=== PATIENT | male | born 1970 | race Caucasian/White ===

== ENCOUNTER 2016-09-27 10:50 | Inpatient (IN) | payer BC ==
[~2016-09-27] VITALS: Ht 185.4 cm; Wt 98.0 kg
[2016-10-09] MEDS ORDERED: SODIUM CHLORID 0.9% 500 ML IV PRN (09:45)
[2016-10-09] MEDS ORDERED: LACTATED RINGER'S 1000 ML IV PRN (09:45)
[2016-10-09] MEDS ORDERED: ceFAZolin 2 GM PREMIX 50 ML IV SCH (09:45)
[2016-10-09] MEDS ORDERED: VANCOMYCIN 1000 MG/NS 250 ML (for <70 kg) IV SCH ×2 (09:45)
[2016-10-09] MEDS ORDERED: POVIDONE IODINE 5% (ANTISEPSIS KIT) 4 APPLICATIONS EACH NARE PRN (09:45)
[2016-10-09] MEDS ORDERED: CHLORHEXIDINE GLUCONATE 2 % 1 PACK (2 CLOTHS) TOPICAL PRN (09:45)
[2016-10-09] MEDS ORDERED: INSULIN HUMAN REGULAR 1,000 UNITS/10 ML VIAL SQ PRN (09:45)
[2016-10-09] MEDS ORDERED: METOPROLOL TARTRATE 25 MG TAB PO PRN (09:45)
[2016-10-09 10:04] VITALS: BP 132/96; PULSE 97; RESP 20; TEMP 97.8; O2SAT 97
[2016-10-09] MEDS ORDERED: PROPOFOL 200 MG/20 ML AMP IV ONE (12:00)
[2016-10-09] MEDS ORDERED: PHENYLEPH/NS 1000 MCG/10 ML SYR IV ONE (12:00)
[2016-10-09] MEDS ORDERED: LACTATED RINGER'S 1000 ML INJ 1,000 ML IV ONE (12:00)
[2016-10-09] MEDS ORDERED: GENTAMICIN SULFATE 80 MG/2 ML VIAL ONE (12:51)
[2016-10-09] MEDS ORDERED: MORPHINE SULFATE 4 MG/ML INJ ONE (13:19)
[2016-10-09] MEDS ORDERED: ACETAMINOPHEN 1000 MG/100 ML VIAL IV ONE (14:44)
[2016-10-09] MEDS ORDERED: KETAMINE HCL 500 MG/5 ML VIAL ONE (14:44)
[2016-10-09] MEDS ORDERED: NALOXONE HCL 0.4 MG/ML AMP IV PRN (18:00)
[2016-10-09] MEDS ORDERED: ONDANSETRON HCL 4 MG/2 ML VIAL IV PRN (18:00)
[2016-10-09] MEDS ORDERED: SOD PHOSPHATE/SOD BIPHOSPHATE (ADULT) ENEMA 133ML PR PRN (18:00)
[2016-10-09] MEDS ORDERED: ALUMINUM/MAGNESIUM/SIMETH 30 ML CUP PO PRN (18:00)
[2016-10-09] MEDS ORDERED: BISACODYL 10 MG SUPP RECTAL PRN (18:00)
[2016-10-09] MEDS ORDERED: Post-op Orders (for Pharmacy) MISC XX ONE (18:00)
[2016-10-09] MEDS ORDERED: ACETAMINOPHEN/HYDROcodone 325 MG/7.5 MG TAB PO PRN (18:00)
[2016-10-09] MEDS ORDERED: MORPHINE SULFATE 8 MG/ML INJ IV PUSH PRN (18:00)
[2016-10-09] MEDS ORDERED: SODIUM CHLORIDE 0.9% FLUSH 5 ML FLUSH IVF PRN (18:00)
[2016-10-09] MEDS: LACTATED RINGER'S 1000 ML INJ 1,000 ML IV SCH ×2 (18:00→21:24)
--- NOTE | 2016-10-09 18:10 | PD.OP ---
cc: Calderon Warner MD Operative Report Date of Surgery: Oct 09, 2016 Preoperative Diagnosis: Lumbar spinal stenosis, L4 5. Lumbosacral radiculopathy. Degenerative disc disease lumbar spine. Discogenic low back pain Postoperative Diagnosis: Same. 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 Posterior spinal fusion, L4 5. Posterior spinal segmental instrumentation, L4 5. Posterior lateral interbody fusion. Placement of interbody cage. Major bone grafting of the lumbar spine Anesthesia: Gen. Surgeon: Calderon Warner Grain Buyer(s): ANTHONY Akers Operation and Findings: EBL: 200 ml NOTE: Karen Akers PA-C was present for the entire surgical procedure as my rehabilitation assistant. In my medical opinion her skill and care was necessary for proper management of this patient INDICATIONS: Patient is a 46-year-old male with significant back hip and leg pain. Vascular studies shows evidence of spinal stenosis at the L4 5 level and foraminal stenosis at level. Patient presents for surgical decompression. INSTRUMENTATION: Cage: Stax. Instrumentation, Solko PROCEDURE: The patient brought to the operating room and anesthetized the supine position. The patient positioned prone on the Murali frame on the Antonio table. All pressure points are protected. The back was scrubbed with alcohol followed by Hibiclens followed by ChloraPrep and draped sterilely and antibiotics were given within a routine time window. A timeout was done. Lateral radiographic images used to identify the proper level for the procedure. Compared care for the preoperative studies. Skin markings were made anticipating surgical treatment. A paramedian incision was made. The lamina and facet joint was exposed. We used the proper retractor was positioned over this region. The microscope was rolled into the field for visualization. A high-speed bur was used to take the lamina down and doing a subtotal facet resection. The exiting and crossing nerve roots were completely decompressed. A total discectomy was accomplished. The disc space was prepared. All cartilaginous material from the disc space was removed. A combination of demineralized bone matrix and Nucel stem cells were mixed together on the back table.. These were injected into the disc space. The cage was then placed according to prop setter's recommendation and deployed. Position was satisfactory. Additional bone graft was placed into the disc space. The outer edge of the facet joint was identified and prepared. Under fluoroscopic images, a bur was used to gain entrance into the pedicle followed by placement of a blunt probe, an awl and placement of proper length screws. Each screw was charged with electric current there are no abnormal potentials registered in either lower extremity. A proper length angeles was fitted and attached and tightened according to prop setter's recommendation. The wound was irrigated copiously. Bone grafting was placed along the lateral gutter in the region of the transverse process across this level. This was closed in layers with #1 Vicryl, 2-0 Vicryl and running intradermal 3-0 Vicryl followed by Steri-Strips and benzoin. On the contralateral side a separate exposure was made. The outer edge of the facet joints were identified. A bur was used to gain entrance into the pedicle followed by placement of a probe and proper length screws. Each screw was charged with electric current and no abnormal potentials registered in either lower extremity. The wound was irrigated copiously. Bone graft placed along the transverse process across this level. It was closed in layers using #1 Vicryl, 2-0 Vicryl and running intradermal 3-0 Vicryl followed by Steri-Strips and benzoin. Intraoperative radiographs were obtained. No complication was appreciated. The patient had a sterile dressing applied. The patient was awakened and taken to recovery room in satisfactory condition. FINDINGS: There was moderate to advanced spinal stenosis at that level. The instability was more than appreciated based on preoperative x-rays. The overall final alignment was satisfactory. Calderon Warner MD Oct 09, 2016 18:10
[2016-10-09] MEDS ORDERED: HYDR-3580 PO (18:11)
[2016-10-09] MEDS ORDERED: fentaNYL CITRATE 250 MCG/5 ML AMP ONE (18:47)
[2016-10-09] MEDS ORDERED: DO NOT ADM ANY ANTICOAGULANT DRUGS PRN (18:50)
[2016-10-09] MEDS: MORPHINE SULFATE 30 MG/30 ML PCA IV SCH (18:52)
--- NOTE | 2016-10-09 19:03 | RADRPT ---
EXAM DATE/TIME: 10/09/2016 17:51 [place] COMPARISON: No previous studies available for comparison. INDICATIONS : Lumbar fusion, L4-5. MEDICAL HISTORY : Unobtainable. SURGICAL HISTORY : Unobtainable. ENCOUNTER: Initial ACUITY: 1 day PAIN SCORE: Non-responsive. LOCATION: Neck. FINDINGS: Two view examination was performed. This postoperative transpedicular screw and angeles fixation across L 4-5. No acute fracture or spondylolisthesis. CONCLUSION: 1. Postoperative fusion at L4-5. Azael Hood MD on October 09, 2016 at 19:01 Board Certified Radiologist. This report was verified electronically.
[2016-10-09 20:05] VITALS: BP 122/70; PULSE 82; RESP 19; TEMP 96.2; O2SAT 96
[2016-10-09] MEDS: SODIUM CHLORIDE 0.9% FLUSH 5 ML FLUSH IVF SCH (21:00)
[2016-10-09] MEDS: ACETAMINOPHEN/HYDROcodone 325 MG/7.5 MG TAB PO PRN (21:23)
[2016-10-09] MEDS: ZOLPIDEM TARTRATE 5 MG TAB PO PRN (21:24)
[2016-10-09] MEDS: PCA - TOTAL MG MORPHINE DELIVERED PER SHIFT SCH (22:00)
[2016-10-09 22:05] VITALS: O2SAT 96
[2016-10-10] VITALS (7 sets, daily range): BP systolic 115–132; BP diastolic 69–86; PULSE 86–105; RESP 17–18; TEMP 96–97.5; O2SAT 93–98
[2016-10-10] MEDS ORDERED: CYCLOBENZAPRINE HCL 10 MG TAB PO ONE
[2016-10-10] MEDS ORDERED: MAGNESIUM HYDROXIDE SUSP 30 ML CUP PO PRN (01:15)
[2016-10-10] MEDS: ACETAMINOPHEN/HYDROcodone 325 MG/7.5 MG TAB PO PRN ×3 (04:36→19:34)
[2016-10-10] MEDS: MORPHINE SULFATE 30 MG/30 ML PCA IV SCH (04:39)
[2016-10-10] MEDS: PCA - TOTAL MG MORPHINE DELIVERED PER SHIFT SCH ×2 (06:00→14:00)
[2016-10-10 07:10] LABS: HEMATOCRIT 41.6 % (39.0-51.0); REVIEW FLAG FINAL
[2016-10-10] MEDS: SODIUM CHLORIDE 0.9% FLUSH 5 ML FLUSH IVF SCH ×2 (08:38→19:35)
--- NOTE | 2016-10-10 09:30 | HHI.FF ---
Face to Face Verification Diagnosis: (1) Lumbar spinal stenosis (2) Lumbar spine instability (3) Degeneration of intervertebral disc of lumbar region Physical Therapy Gait training, Safety evaluation S/P Spinal Fusion: Gait training with walker, Weight bearing as tolerated, No twisting of torso, No bending Additional Instructions PT 3 days/wk for 1 weeks. Out of bed with brace for 10-12 weeks. Gait training. Transfers. Nursing RN Days per Week: 5 x Week(s): 1 Dressing Changes: Daily dressing change, 4x4s, Coverderm/Primapore Additional Instructions Dry dressing changes daily w etoh. I have seen patient Devan Brito on 10/10/16. My clinical findings support the need for the requested home health care services because: Limited ability to care for self High risk of falls I certify that my clinical findings support that this patient is homebound because: Post-op weakness Unsteady gait/balance Ana Paula Adkins Oct 10, 2016 09:30
[2016-10-10] MEDS ORDERED: MISC-163 (09:31)
--- NOTE | 2016-10-10 09:35 | PD.ORT.PN ---
Subjective Subjective Remarks Moderate to significant low back pain. Spasms are frequent. No new radiating leg pain. No other concerns - no CP, abd pain or SOB. Questions about surgery. Questions about discharge. Objective Vitals Vital Signs Date Time Temp Pulse Resp B/P Pulse Ox O2 Delivery O2 Flow Rate FiO2 10/10/16 06:00 18 10/10/16 04:39 18 10/10/16 04:00 96.2 86 17 121/79 95 10/10/16 01:15 96.0 95 18 115/69 93 10/09/16 22:05 96 Nasal Cannula 2.00 10/09/16 22:00 17 10/09/16 21:07 96 Nasal Cannula 2.00 10/09/16 20:05 96.2 82 19 122/70 96 10/09/16 19:28 97.8 91 20 137/78 94 Nasal Cannula 3 10/09/16 19:15 91 20 137/78 94 Nasal Cannula 3 10/09/16 19:00 95 20 143/79 94 Nasal Cannula 3 10/09/16 18:52 16 10/09/16 18:45 100 20 147/81 93 Nasal Cannula 3 10/09/16 18:37 97.8 119 20 128/72 91 Nasal Cannula 3 10/09/16 10:04 97.8 97 20 132/96 97 I/O 10/09/16 10/09/16 10/09/16 10/10/16 10/10/16 10/10/16 07:00 15:00 23:00 07:00 15:00 23:00 Intake Total 1740 ml 587 ml 480 ml Output Total 500 ml 1000 ml Balance 1240 ml 587 ml -520 ml Intake Oral 480 ml IV Total 240 ml 587 ml Other 1500 ml Output Urine Total 400 ml 1000 ml Estimated Blood Loss 100 ml # Bowel Movements 0 Result Diagram: 10/10/16 06 Objective Remarks Laying in bed, no brace Mild distress, VSS L/S Dressing c/i, mild drainage, some spasm, no erythema +motor at/ehl distal, +sens, +nvi neg homans Assessment & Plan Ortho Post Op Day #: 1 Problem List: Assessment and Plan pod#1 s/p Lami Fusion L45, bone graft D/C [employer] later today after PT works with him. Change to po pain meds at that time. Dry dressing changes daily beginning pod#2. OOB w brace for 10-12 weeks. Walker as needed. D/C planning, [facility] or sat. DME and F2F written. Ana Paula Adkins Oct 10, 2016 09:35
[2016-10-10] MEDS: POVIDONE IODINE 7.5% SCRUB 118 ML BOTTLE TOPICAL SCH (09:45)
[2016-10-10] MEDS ORDERED: CYCLOBENZAPRINE HCL 10 MG TAB PO PRN (11:00)
--- NOTE | 2016-10-10 17:12 | PD.CONS ---
[facility] By Dr[facility] Huff Reason for Consult Medical management Primary Care Physician Cat Kaplan MD Diagnoses: History of Present Illness This is a 46-year-old male with no past medical history who presented with L4 to 5 lumbar spinal stenosis, lumbosacral radiculopathy, degenerative disc disease lumbar spine with failed conservative management and presented with lumbar laminectomy L4, L5, lateral recess decompression, subtotal facet resection, posterior spinal fusion, L4 5. posterior spinal segmental instrumentation, L4 5, posterior lateral interbody fusion, placement of interbody cage, and major bone grafting of the lumbar spine on 10/09/2016. Patient has no complaints. He is on the EEG TECHNICIAN pump. His nurse is at the bedside. He stated he is a relatively healthy person but has been suffering the lower back pain for many years. [facility] consulted for medical management, the patient does not have any medical conditions. Review of Systems Constitutional: DENIES: Diaphoretic episodes, Fatigue, Fever, Weight gain, Weight loss, Chills, Dizziness, Change in appetite, Night Sweats Endocrine: DENIES: Heat/cold intolerance, Polydipsia, Polyuria, Polyphagia Eyes: DENIES: Blurred vision, Diplopia, Eye inflammation, Eye pain, Vision loss , Photosensitivity, Double Vision Ears, nose, mouth, throat: DENIES: Tinnitus, Hearing loss, Vertigo, Nasal discharge, Oral lesions, Throat pain, Hoarseness, Ear Pain, Running Nose, Epistaxis, Sinus Pain, Toothache, Odynophagia Respiratory: DENIES: Apneas, Cough, Snoring, Wheezing, Hemoptysis, Sputum production, Shortness of breath Cardiovascular: DENIES: Chest pain, Palpitations, Syncope, Dyspnea on Exertion , PND, Lower Extremity Edema, Orthopnea, Claudication Gastrointestinal: DENIES: Abdominal pain, Black stools, Bloody stools, Constipation, Diarrhea, Nausea, Vomiting, Difficulty Swallowing, Anorexia Genitourinary: DENIES: Sexual dysfunction, Urinary frequency, Urinary incontinence, Urgency, Hematuria, Dysuria, Nocturia, Penile Discharge, Testicular Pain, Testicular Swelling Musculoskeletal: COMPLAINS OF: Joint pain, Back pain, DENIES: Muscle aches, Stiffness, Joint Swelling, Neck pain Integumentary: DENIES: Abnormal pigmentation, Nail changes, Pruritus, Rash Hematologic/lymphatic: DENIES: Bruising, Lymphadenopathy Immunologic/allergic: DENIES: Eczema, Urticaria Psychiatric: DENIES: Anxiety, Confusion, Mood changes, Depression, Hallucinations, Agitation, Suicidal Ideation, Homicidal Ideation, Delusions Past Family Social History Allergies: Coded Allergies: Sulfa (Verified Allergy, Severe, HIVES, 10/08/16) Past Medical History Denies any past medical history. Past Surgical History Cholecystectomy Repair of his big toe C4 to C5 fusion Reported Medications 3-in-1 Bedside Toilet (Device) 1 Mis Mis 1 Ea .ROUTE DIRECTED Hydrocodone-Acetaminophen 7.5-325 mg Tab 1 Tab PO Q4H PRN Active Ordered Medications Current Medications Povidone Iodine 1 applic 1 applic ONCE TOPICAL ; Start 10/09/16 at 09:45; Stop 10/12/16 at 09:44 Cefazolin Sodium/ Dextrose 50 ml @ 100 mls/hr DIRECTOR [employer] IV Last administered on 10/09/16 15:47; Start 10/09/16 at 09:45; Stop 10/09/16 at 18:23; Status DC Vancomycin HCl 1000 mg/Sodium Chloride 250 ml @ 250 mls/hr [employer] IV Last administered on 10/09/16 11:10; Start 10/09/16 at 09:45; Stop 10/09/16 at 18:23 ; Status DC Lactated Ringer's 1,000 ml @ 30 mls/hr Q24H PRN IV SEE LABEL COMMENTS Last administered on 10/09/16 10:05; Start 10/09/16 at 09:45; Stop 10/09/16 at 18:22 ; Status DC Sodium Chloride (NS 500 ml Inj) 500 ml @ 30 mls/hr [id number] PRN IV SEE LABEL COMMENTS; Start 10/09/16 at 09:45; Stop 10/09/16 at 18:22; Status DC Metoprolol Tartrate (Lopressor) 25 mg [employer] PRN PO SEE LABEL COMMENTS; Start 10/09/16 at 09:45; Stop 10/09/16 at 18:22; Status DC Povidone Iodine (Betadine 5% Antisepsis Kit) 1 applic [employer] PRN EACH NARE SEE LABEL COMMENTS; Start 10/09/16 at 09:45; Stop 10/09/16 at 18:22; Status DC Chlorhexidine Gluconate (Chlorhexidine 2% Cloth) 3 pack [employer] PRN TOPICAL SEE LABEL COMMENTS; Start 10/09/16 at 09:45; Stop 10/09/16 at 18:22; Status DC Insulin Human Regular (NovoLIN R INJ) See Protocol Table ... [employer] PRN SQ SEE PROTOCOL TABLE; Start 10/09/16 at 09:45; Stop 10/09/16 at 18:22; Status DC Gentamicin Sulfate (Gentamicin Inj) 160 mg STK-MED ONCE .ROUTE Last administered on 10/09/16 16:06; Start 10/09/16 at 12:51; Stop 10/09/16 at 12:52 ; Status DC Morphine Sulfate (Morphine Inj) 4 mg STK-MED ONCE .ROUTE ; Start 10/09/16 at 13: 19; Stop 10/09/16 at 13:20; Status DC Acetaminophen (Ofirmev Inj) 1,000 mg STK-MED ONCE IV ; Start 10/09/16 at 14:44; Stop 10/09/16 at 14:45; Status DC Ketamine HCl 500 mg 500 mg STK-MED ONCE .ROUTE ; Start 10/09/16 at 14:44; Stop 10/09/16 at 14:45; Status DC Lactated Ringer's (Lr 1000 ml Inj) 1,000 ml @ 80 mls/hr [id number] IV Last administered on 10/09/16 21:24; Start 10/09/16 at 18:00 IV Flush (NS Flush) 2 ml UNSCH PRN IVF FLUSH AFTER USING IV ACCESS; Start 10/09 at 18:00 IV Flush (NS Flush) 2 ml BID IVF Last administered on 10/10/16 08:38; Start at 21:00 Miscellaneous Information STAT ONCE XX ; Start 10/09/16 at 18:00; Stop at 18:26; Status DC Cefazolin Sodium/ Sodium Chloride (Ancef Inj/NS Inj) 100 ml @ 200 mls/hr Q8H IV Last administered on 10/10/16 14:55; Start 10/09/16 at 22:00; Stop at 14:29; Status DC Acetaminophen/ Hydrocodone Bitart ([place] 7.5-325 Mg) 1 tab Q4H PRN PO PAIN SCALE 1 TO 5; Start 10/09/16 at 18:00 Acetaminophen/ Hydrocodone Bitart ([place] 7.5-325 Mg) 2 tab Q6H PRN PO PAIN SCALE 6 TO 10 Last administered on 10/10/16 11:31; Start 10/09/16 at 18:00 Ondansetron HCl (Zofran Inj) 4 mg Q6H PRN IV NAUSEA OR VOMITING; Start at 18:00 Docusate Sodium (Colace) 100 mg BID PO ; Start 10/10/16 at 21:00 Al Hydrox/Mg Hydrox/Simethicone (Mag-Al Plus Susp Liq) 30 ml Q6H PRN PO INDIGESTION; Start 10/09/16 at 18:00 Zolpidem Tartrate (Ambien) 5 mg HS PRN PO SLEEP Last administered on 10/09/16 21:24; Start 10/09/16 at 21:00 Bisacodyl (Dulcolax Supp) 10 mg DAILY PRN RECTAL CONSTIPATION; Start 10/09/16 at 18:00 Sodium Biphosphate/ Sodium Phosphate (Fleets Enema (Adult)) 133 ml DAILY PRN DC CONSTIPATION; Start 10/09/16 at 18:00 Naloxone HCl (Narcan Inj) 0.4 mg UNSCH PRN IV RESPIRATORY RATE LESS THAN 10; Start 10/09/16 at 18:00 Morphine Sulfate (Morphine 1 Mg/ ml EEG TECHNICIAN) 30 mg UNSCH IV Last administered on 04:39; Start 10/09/16 at 18:00; Stop 10/10/16 at 15:00; Status DC EEG TECHNICIAN Dosage Infused (Pha) 1 Q8HR .XX Last administered on 10/10/16 14:00; Start 10/09/16 at 22:00; Stop 10/10/16 at 15:00; Status DC Morphine Sulfate (Morphine Inj) 5 mg Q4H PRN IV PUSH PAIN SCALE 7 TO 10; Start 10/09/16 at 18:00 Fentanyl Citrate (fentaNYL INJ) 500 mcg STK-MED ONCE .ROUTE ; Start 10/09/16 at 18:47; Stop 10/09/16 at 18:48; Status DC Miscellaneous Information ALL NURSING DEPARTME... UNSCH PRN .XX SEE LABEL COMMENTS; Start 10/09/16 at 18:50; Stop 10/10/16 at 18:49 Cyclobenzaprine HCl (Flexeril) 10 mg ONCE ONCE PO Last administered on t 00:08; Start 10/10/16 at 00:00; Stop 10/10/16 at 00:01; Status DC Magnesium Hydroxide (Milk Of Dedrick Lijorge) 30 ml Q12H PRN PO FOR CONSTIPATION; Start 10/10/16 at 01:15 Cyclobenzaprine HCl (Flexeril) 10 mg BID PRN PO spasm; Start 10/10/16 at 11:00 Family History Mother history of heart disease past away at the age of 80. Father had lung cancer past with the age of 64. Social History Patient denies any tobacco, alcohol, or illicit drug use. Physical Exam Vital Signs Vital Signs Date Time Temp Pulse Resp B/P Pulse Ox O2 Delivery O2 Flow Rate FiO2 10/10/16 16:30 97.3 104 18 129/82 95 10/10/16 14:00 18 10/10/16 12:00 96.0 96 18 130/85 96 10/10/16 08:45 97 21 10/10/16 08:00 96.8 92 18 132/79 97 10/10/16 06:00 18 10/10/16 04:39 18 10/10/16 04:00 96.2 86 17 121/79 95 10/10/16 01:15 96.0 95 18 115/69 93 10/09/16 22:05 96 Nasal Cannula 2.00 10/09/16 22:00 17 10/09/16 21:07 96 Nasal Cannula 2.00 10/09/16 20:05 96.2 82 19 122/70 96 10/09/16 19:28 97.8 91 20 137/78 94 Nasal Cannula 3 10/09/16 19:15 91 20 137/78 94 Nasal Cannula 3 10/09/16 19:00 95 20 143/79 94 Nasal Cannula 3 10/09/16 18:52 16 10/09/16 18:45 100 20 147/81 93 Nasal Cannula 3 10/09/16 18:37 97.8 119 20 128/72 91 Nasal Cannula 3 Physical Exam GENERAL: This is a well-nourished, well-developed patient, in no apparent distress. SKIN: No rashes, ecchymoses or lesions. Cool and dry. HEAD: Atraumatic. Normocephalic. No temporal or scalp tenderness. EYES: Pupils equal round and reactive. Extraocular motions intact. No scleral icterus. No injection or drainage. ENT: Nose without bleeding, purulent drainage or septal hematoma. Throat without erythema, tonsillar hypertrophy or exudate. Uvula midline. Airway patent. NECK: Trachea midline. No JVD or lymphadenopathy. Supple, nontender, no meningeal signs. CARDIOVASCULAR: Regular rate and rhythm without murmurs, gallops, or rubs. RESPIRATORY: Clear to auscultation. Breath sounds equal bilaterally. No wheezes , rales, or rhonchi. GASTROINTESTINAL: Abdomen soft, non-tender, nondistended. No hepato-splenomegaly , or palpable masses. No guarding. MUSCULOSKELETAL: Extremities without clubbing, cyanosis, or edema. Lumbar limited range of motion due to recent surgery. NEUROLOGICAL: Awake and alert. Cranial nerves II through XII intact. Motor and sensory grossly within normal limits. Five out of 5 muscle strength in all muscle groups. Normal speech. Laboratory Laboratory Tests Test 10/10/16 06:21 Hemoglobin 14.5 Hematocrit 41.6 Result Diagram: 10/10/16 06 Imaging Assessment and Plan Assessment and Plan 36-year-old male presented with Lumbar spinal stenosis, L4 5, Lumbosacral radiculopathy, Degenerative disc disease lumbar spine. -Failed conservative management. -s/p Lumbar laminectomy L4, L5, lateral recess decompression, subtotal facet resection, posterior spinal fusion, L4 5, posterior spinal segmental instrumentation, L4 5, posterior lateral interbody fusion, placement of interbody cage and major bone grafting of the lumbar spine on 10/09/2016. -Continue current treatment per orthopedic surgeon. DVT prophylaxis -SCDs. Per primary team. Discussed Condition With Patient is medically clear for discharge. Tracy Sanderson MD Oct 10, 2016 17:12
[2016-10-10] MEDS: LACTATED RINGER'S 1000 ML INJ 1,000 ML IV SCH (18:42)
[2016-10-10] MEDS: DOCUSATE SODIUM 100 MG CAP PO SCH (19:34)
[2016-10-10] MEDS: ZOLPIDEM TARTRATE 5 MG TAB PO PRN (20:27)
[2016-10-11] VITALS: BP 132/96; PULSE 104; RESP 17; TEMP 98.6; O2SAT 97
[2016-10-11] MEDS: ACETAMINOPHEN/HYDROcodone 325 MG/7.5 MG TAB PO PRN ×2 (02:43→10:04)
[2016-10-11 04:00] VITALS: BP 144/89; PULSE 100; RESP 18; TEMP 99.1; O2SAT 97
[2016-10-11] MEDS: POVIDONE IODINE 7.5% SCRUB 118 ML BOTTLE TOPICAL SCH (07:27)
[2016-10-11] MEDS: LACTATED RINGER'S 1000 ML INJ 1,000 ML IV SCH (07:27)
--- NOTE | 2016-10-11 08:02 | HHI.DCPOC ---
Discharge Care Plan Diagnosis: (1) Lumbar spinal stenosis (2) Lumbar spine instability (3) Degeneration of intervertebral disc of lumbar region Your Health Problems Are: Incision/Drains Swelling Goals to Promote Your Health * To prevent worsening of your condition and complications * To maintain your health at the optimal level Directions to Meet Your Goals Take your medications as prescribed Follow your dietary instruction Follow activity as directed Keep your appointments as scheduled Take your immunizations and boosters as scheduled If your symptoms worsen call your PCP, if no PCP go to Urgent Care Center or Emergency Room Smoking is Dangerous to Your Health. Avoid second hand smoke Call the 24-hour hour crisis hotline for domestic abuse at Ana Paula Adkins Oct 11, 2016 08:02
--- NOTE | 2016-10-11 08:03 | HHI.DS ---
Discharge Summary Admission Date Oct 09, 2016 at 08:46 Discharge Date: Oct 11, 2016 Admitting Diagnosis see below Diagnosis: (1) Lumbar spinal stenosis Diagnosis: Principal (2) Lumbar spine instability Diagnosis: Principal (3) Degeneration of intervertebral disc of lumbar region Diagnosis: Principal Procedures Laminectomy L45 with lateral recess decompression, subtotal facet resection, posterior lumbar fusion L45, bone graft. Brief History This is a 46 year old male patient with low back and right hip pain for over 5 years. He initially sought out treatment 3-4 years ago. Imaging studies showed stenosis at L45. He had multiple injections by Dr. Lugo which moderately controlled his pain. Over the last 2 years his pain has slowly increased. He again sought out treatment. Conservative measures were pursued including use of anti-inflammatory medications. Repeat imaging was performed showing advanced foraminal stenosis at L45. Because his function was continuing to decline surgical treatment was recommended and he elected to move forward. CBC/BMP: 10/10/16 0621 PE at Discharge Laying in bed, no brace Mild distress, VSS L/S Dressing c/i, mild drainage, some spasm, no erythema +motor at/ehl distal, +sens, +nvi neg [facility] Course Surgical treatment was performed on the day of admission without complication. He recovered well in PACU and was transferred to the orthopaedic floor. Pain was controlled with IV and oral medications. He was compliant with therapy and all lumbar fusion precautions including use of his brace. After 2 days he was found to be stable and discharged home with home health care. He was given instruction to continue his lumbar brace when out of bed, continue to utilize the norco as needed and to pursue a high fiber diet for 72 hours. Pt Condition on Discharge: Stable Discharge Disposition: Disch w/ Home Health Serv Discharge Instructions Diet Instructions: As Tolerated, No Restrictions, High Fiber Diet Activities You Can Perform: Weight Bearing as Maksim, See Additionl Instruction Activities to Avoid: Lifting/Bending, Strenuous Activity Additional Activity Instruc.: Brace when Out of bed New Medications: 3-in-1 Bedside Toilet (3-in-1 Bedside Toilet) 1 Mis Mis 1 EA .ROUTE DIRECTED #1 EA Hydrocodone-Acetaminophen (Hydrocodone-Acetaminophen) 7.5-325 mg Tab 1 TAB PO Q4H PRN PAIN SCALE 1 TO 5 #60 TAB Ana Paula Adkins Oct 11, 2016 08:03
[2016-10-11 08:05] VITALS: BP 149/92; PULSE 94; RESP 16; TEMP 98; O2SAT 95
--- NOTE | 2016-10-11 08:05 | PD.ORT.PN ---
Subjective Subjective Remarks Still has moderate low back pain. Slightly better today. Hi pand buttock pain much improved. No new radiating leg pain. No other concerns - no CP, abd pain or SOB. Ready for d/c later today. Objective Vitals Vital Signs Date Time Temp Pulse Resp B/P Pulse Ox O2 Delivery O2 Flow Rate FiO2 10/11/16 04:00 99.1 100 18 144/89 97 10/11/16 00:00 98.6 104 17 132/96 97 10/10/16 19:24 97.5 105 18 130/86 98 10/10/16 16:30 97.3 104 18 129/82 95 10/10/16 14:00 18 10/10/16 12:00 96.0 96 18 130/85 96 10/10/16 08:45 97 21 I/O 10/10/16 10/10/16 10/10/16 10/11/16 10/11/16 10/11/16 07:00 15:00 23:00 07:00 15:00 23:00 Intake Total 587 ml 590 ml 1578 ml 510 ml Output Total 1000 ml Balance 587 ml -410 ml 1578 ml 510 ml Intake Oral 480 ml 1280 ml 240 ml IV Total 587 ml 110 ml 298 ml 270 ml Output Urine Total 1000 ml # Voids 3 2 # Bowel Movements 0 0 0 Result Diagram: 10/10/16 0621 Procedures Laminectomy L45 with lateral recess decompression, subtotal facet resection, posterior lumbar fusion L45, bone graft. Objective Remarks Laying in bed, brace in place NAD VSS L/S Dressing c/i, no new drainage, some spasm, no erythema +motor at/ehl distal, +sens, +nvi neg homans Assessment & Plan Ortho Post Op Day #: 2 Problem List: (1) Lumbar spinal stenosis (2) Lumbar spine instability (3) Degeneration of intervertebral disc of lumbar region Assessment and Plan pod#2 s/p Lami Fusion L45, bone graft Ok to d/c home w [facility] later today after PT. PO pain meds as needed Dry dressing changes daily w etoh. OOB w brace for 10-12 weeks. Walker as needed. F/U in 2 weeks as scheduled. DME and F2F written. Ana Paula Adkins Oct 11, 2016 08:05
[2016-10-11] MEDS: SODIUM CHLORIDE 0.9% FLUSH 5 ML FLUSH IVF SCH (09:00)
[2016-10-11] MEDS: DOCUSATE SODIUM 100 MG CAP PO SCH (10:04)
[2016-10-11 11:37] VITALS: BP 130/85; PULSE 90; RESP 18; TEMP 97.9; O2SAT 96
== END 2016-10-11 14:05 | disposition home health service (06) | DRG 460 ==
LOC: HSDI 10-09 08:46 → N06A 10-09 19:52
PROVIDERS: ADMIT Orthopaedic Surgery Orthopaedic Surgery of the Spine; ATTEND Orthopaedic Surgery Orthopaedic Surgery of the Spine
PROC: 0ST20ZZ Resection of Lumbar Vertebral Disc, Open Approach (ICD-10-PCS; 2016-10-09)
PROC: 0QB30ZZ Excision of Left Pelvic Bone, Open Approach (ICD-10-PCS; 2016-10-09)
PROC: 0SG00AJ Fusion of Lumbar Vertebral Joint with Interbody Fusion Device, Posterior Approach, Anterior Column, Open Approach (ICD-10-PCS; principal; 2016-10-09 14:45)
DX: M48.06 Spinal stenosis, lumbar region (principal); M53.2X6 Spinal instabilities, lumbar region; M51.36 Other intervertebral disc degeneration, lumbar region; M54.17 Radiculopathy, lumbosacral region; M54.5 Low back pain; Z98.1 Arthrodesis status
CPT/HCPCS: 72100; 76000; 85014; 85018; 86850; 86900; 86901; 94150; C1713; J0131; J0690; J1580; J2270; J2370; J3010; J3370; J7050; J7120

== ENCOUNTER → 2016-10-03 | Outpatient (CLI) | payer BC ==
[~2016-10-03] MED LIST: ALBU8I INH; AMLO5TAB22 PO; HYDR-3580 PO; LEVA750T PO; MISC-163; PRED20 PO
--- NOTE | 2016-10-04 17:24 | EKG ---
Date Performed: 10/03/2016 Time Performed: 15:35:49 PTAGE: 46 years EKG: SINUS TACHYCARDIA ABNORMAL RHYTHM ECG NO PREVIOUS TRACING DOCTOR: Donavan Falcon Interpretating Date/Time 10/04/2016 17:22:07
== END ==
LOC: HCAV 15:09
PROVIDERS: ATTEND Orthopaedic Surgery Orthopaedic Surgery of the Spine
DX: Z01.810 Encounter for preprocedural cardiovascular examination (principal)
CPT/HCPCS: 93005

== ENCOUNTER 2017-07-23 13:42 | Emergency (ER) | payer BC ==
[~2017-07-23] VITALS: Ht 185.4 cm; Wt 99.0 kg
[~2017-07-23 13:42] MED LIST changes: -ALBU8I INH; -AMLO5TAB22 PO; -LEVA750T PO; -PRED20 PO
[2017-07-23 14:16] VITALS: BP 138/78; PULSE 88; RESP 18; TEMP 97.7; O2SAT 98
--- NOTE | 2017-07-23 14:23 | PD ---
HPI Chief Complaint: Musculoskeletal Complaint Time Seen by Provider: 14:19 Travel History International Travel<30 days: No Contact w/Intl Traveler<30days: No Traveled to known affect area: No History of Present Illness HPI 47-year-old male presents for evaluation of right ankle pain. He reports that he twisted his right ankle 3 days ago. He has pain to the lateral posterior right ankle which is worse with dorsi and plantarflexion. He has been able to ambulate with pain. He has no other complaints at this time. PFSH Past Medical History Arthritis: Yes Asthma: No Autoimmune Disease: No Anxiety: No Depression: No Heart Rhythm Problems: No Cancer: No Cardiovascular Problems: No High Cholesterol: No Chemotherapy: No Chest Pain: No Congestive Heart Failure: No COPD: No Cerebrovascular Accident: No Diabetes: No Diminished Hearing: No Endocrine: No Gastrointestinal Disorders: No GERD: No Genitourinary: No Headaches: No Hepatitis: No Hiatal Hernia: No Heparin Induced Thrombocytopen: No Hypertension: No Immune Disorder: No Implanted Vascular Access Dvce: Yes Kidney Stones: No Medical other: No Musculoskeletal: Yes (DDD) Neurologic: No Psychiatric: No Reproductive: No Respiratory: Yes (PNA) Immunizations Current: Yes Migraines: No Radiation Therapy: No Renal Failure: No Seizures: No Sickle Cell Disease: No Sleep Apnea: No Thyroid Disease: No Ulcer: No Past Surgical History Abdominal Surgery: Yes (CHOLECYSTECTOMY) AICD: No Arteriovenous Shunt: No Body Medical Devices: HARDWARE CERVICAL SPINE / RIGHT GREAT TOE Cardiac Surgery: No Ear Surgery: No Endocrine Surgery: No Eye Surgery: No Genitourinary Surgery: No Gynecologic Surgery: No Insulin Pump: No Joint Replacement: No Neurologic Surgery: Yes (C4-C5 FUSION) Oral Surgery: No Pacemaker: No Thoracic Surgery: No Other Surgery: Yes Social History Alcohol Use: Yes (OCC) Tobacco Use: No Substance Use: No Allergies-Medications (Allergen,Severity, Reaction): Coded Allergies: Sulfa (Sulfonamide Antibiotics) (Unverified Allergy, Severe, HIVES, ) Reported Meds & Prescriptions Reported Meds & Active Scripts Active No Active Prescriptions or Reported Medications Review of Systems General / Constitutional: No: Fever, Chills Musculoskeletal: Positive: Pain, No: Limited ROM Skin: Positive Other (denies open wounds) Physical Exam Narrative GENERAL: Well-developed well-nourished male in no acute distress SKIN: Warm and dry. CARDIOVASCULAR: Regular rate and rhythm. No murmur appreciated. RESPIRATORY: No accessory muscle use. Clear to auscultation. Breath sounds equal bilaterally. MUSCULOSKELETAL: There is some soft tissue swelling around the lateral right ankle. Tender to palpation. Pain with dorsi and plantar flexion which is preserved. Achilles tendon is intact and nontender. 2+ dorsalis pedis and posterior tibial pulses. NEUROLOGICAL: Awake and alert. No obvious cranial nerve deficits. Motor grossly within normal limits. Normal speech. Data Data Last Documented VS Vital Signs Date Time Temp Pulse Resp B/P (MAP) Pulse Ox O2 Delivery O2 Flow Rate FiO2 07/23/17 14:16 97.7 88 18 138/78 (98) 98 Orders Orders Ankle, Complete ([id number]) (07/23/17 ) Ed Discharge Order (07/23/17 15:25) [facility] Medical Decision Making Medical Screen Exam Complete: Yes Emergency Medical Condition: Yes Medical Record Reviewed: Yes Differential Diagnosis Lateral ankle sprain, avulsion fracture, fibular fracture Narrative Course X-ray imaging reveals no acute abnormalities. The patient appears to have a mild lateral ankle sprain. He is stable for discharge. He declines crutches. Diagnosis Primary Impression: Right ankle sprain Departure Forms: Tests/Procedures, Work Release Special Instructions: Decreased walking on sprained right ankle until symptoms have resolved. Additional Instructions: Rest. Ice packs several times a day 15 minutes at a time to reduce swelling. Follow up with primary care physician in 2 weeks. Med/Other Pt SpecificInfo: No Change to Meds Scripts No Active Prescriptions or Reported Meds Disposition: 01 DISCHARGE HOME Condition: Stable Andrae Sheth Jul 23, 2017 14:22
--- NOTE | 2017-07-23 15:10 | RADRPT ---
EXAM DATE/TIME: 07/23/2017 14:38 [place] COMPARISON: No previous studies available for comparison. INDICATIONS : Right ankle pain and swelling for 3 days. Patient rolled ankle. MEDICAL HISTORY : None. SURGICAL HISTORY : None. ENCOUNTER: Initial ACUITY: 3 days PAIN SCORE: 6/10 LOCATION: Right lateral ankle. FINDINGS: Three view exam was performed of the right ankle. The bony structures are in normal alignment. No e vidence of fracture, dislocation, or soft tissue swelling. The ankle mortise is intact. No radiopaq ue foreign bodies are seen. Bony mineralization is normal. CONCLUSION: Unremarkable examination of the right ankle. Hira Quiñones MD on July 23, 2017 at 15:07 Board Certified Radiologist. This report was verified electronically.
== END 2017-07-23 15:47 | disposition home or self-care (01) ==
LOC: PHEFT 13:42
DX: S93.401A Sprain of unspecified ligament of right ankle, initial encounter (principal); X50.1XXA Overexertion from prolonged static or awkward postures, initial encounter; Z88.2 Allergy status to sulfonamides
CPT/HCPCS: 73610; 99283